=== PATIENT | female | born 1985 | race Caucasian/White ===

== ENCOUNTER 2017-06-07 05:51 | Emergency (ER) | payer SELFPAY ==
[2017-06-07 06:00] VITALS: BP 132/82
--- NOTE | 2017-06-07 06:17 | EDM.PDOC ---
<Atul Burgos A - Last Filed: 06/07/17 06:55> ED HPI GENERAL MEDICAL PROBLEM - General Chief Complaint: Neuro Symptoms/Deficits Stated Complaint: VISION SPEACH THOUGHT NUMBNESS Time Seen by Provider: 06/07/17 05:55 Source of Information: Reports: Patient History Limitations: Reports: No Limitations - History of Present Illness INITIAL COMMENTS - FREE TEXT/NARRATIVE: The patient is a 32-year-old female with a history of migraines who comes in with several neurological symptoms. She states that at 2:30 this morning she woke up with what she thought was a migraine headache. She had pain in her left neck area. However she noticed that she had difficulty seeing at that time and then also had difficulty speaking and right facial droop and left arm weakness. She took ibuprofen for her headache. The symptoms have fluctuated over the last 4 hours. She and her state that they nearly resolved and then she started having some difficulty speaking again. She's never had symptoms like this before. There was no provoking factor other than the headache. No recent head injury. At this time she still noticing the vision changes which is that she can't see her right peripheral vision out of both eyes. She also is having some difficulty speaking. However the facial droop in the right arm weakness have resolved. Denies recent illness. Last known well time was 8 PM last night when she went to bed. Left Neck Pain Score (Numeric/FACES): 3 - Related Data Allergies Allergy/AdvReac Type Severity Reaction Status Date / Time No Known Allergies Allergy Verified 06/07/17 05:59 Past Medical History Neurological History: Reports: Migraines Social & Family History - Tobacco Use Smoking Status *Q: Never Smoker - Recreational Drug Use Recreational Drug Use: No ED ROS GENERAL - Review of Systems Review Of Systems: See Below Constitutional: Denies: Fever HEENT: Reports: Vision Change Respiratory: Reports: No Symptoms Cardiovascular: Reports: No Symptoms Endocrine: Reports: No Symptoms GI/Abdominal: Reports: No Symptoms Musculoskeletal: Reports: No Symptoms Skin: Reports: No Symptoms Neurological: Reports: Headache, Weakness Psychiatric: Reports: No Symptoms Hematologic/Lymphatic: Reports: No Symptoms Immunologic: Reports: No Symptoms ED EXAM, NEURO - Physical Exam Exam: See Below Exam Limited By: No Limitations General Appearance: Alert, WD/WN, No Apparent Distress Eye Exam: Bilateral Eye: EOMI, Normal Inspection, PERRL Ears: Normal External Exam, Hearing Grossly Normal Nose: Normal Inspection Throat/Mouth: Normal Inspection, Normal Lips, Normal Oropharynx, Normal Voice, No Airway Compromise Head Exam: Atraumatic, Normocephalic Neck: Normal Inspection, Supple, Full Range of Motion Respiratory/Chest: No Respiratory Distress, Lungs Clear, Normal Breath Sounds, No Accessory Muscle Use Cardiovascular: Normal Peripheral Pulses, Regular Rate, Rhythm, No Murmur GI/Abdominal: Soft, Non-Tender Neurological: Alert, Normal Mood/Affect, Normal Dorsiflexion, CN II-XII Intact, Normal Plantar Flexion, No Motor/Sensory Deficits, Oriented x 3, Other (R homonymous hemianopsia) Back Exam: Normal Inspection Extremities: Normal Inspection Psychiatric: Normal Affect, Normal Mood Skin Exam: Warm, Dry, Intact, Normal Color, No Rash Course - Vital Signs Last Recorded V/S: Last Vital Signs Temp 98 F 06/07/17 05:54 Pulse 94 06/07/17 05:54 Resp 16 06/07/17 05:54 BP 132/82 06/07/17 05:54 Pulse Ox 100 06/07/17 05:54 - Orders/Labs/Meds Orders: Active Orders 24 hr Category Date Time Status EKG 12 Lead [EKG Documentation Completion] [RC] STAT Care 06/07/17 06:17 Active Peripheral IV Care [RC] . DIRECTED Care 06/07/17 06:19 Active Brain w wo Cont [MR] Stat Exams 06/07/17 06:40 Taken Sodium Chloride 0.9% [Saline Flush] Med 06/07/17 06:18 Active 10 ml FLUSH ASDIRECTED PRN Sodium Chloride 0.9% [Saline Flush] Med 06/07/17 10:40 Active 10 ml FLUSH ONETIME PRN Peripheral IV Insertion Adult [OM.PC] Routine Oth 06/07/17 06:18 Ordered Medication Orders Sodium Chloride (Saline Flush) 10 ml FLUSH ASDIRECTED PRN PRN Reason: Keep Vein Open Last Admin: 06/07/17 06:24 Dose: 10 ml Sodium Chloride (Saline Flush) 10 ml FLUSH ONETIME PRN PRN Reason: Keep Vein Open Last Admin: 06/07/17 11:23 Dose: 10 ml Labs: Laboratory Tests 09/27/17 09/27/17 Range/Units 06:10 06:10 WBC 5.01 (3.98-10.04) K/mm3 RBC 4.56 (3.98-5.22) M/mm3 Hgb 13.3 (11.2-15.7) gm/L Hct 38.7 (34.1-44.9) % MCV 84.9 (79.4-94.8) fl MCH 29.2 (25.6-32.2) pg MCHC 34.4 (32.2-35.5) g/dl RDW Std Deviation 43.5 (36.4-46.3) fL Plt Count 302 (182-369) K/mm3 MPV 10.8 (9.4-12.3) fl Neut % (Auto) 55.5 (34.0-71.1) % Lymph % (Auto) 36.1 (19.3-51.7) % Baker % (Auto) 6.8 (4.7-12.5) % Eos % (Auto) 0.8 (0.7-5.8) Baso % (Auto) 0.6 (0.1-1.2) % Neut # (Auto) 2.78 (1.56-6.13) K/mm3 Lymph # (Auto) 1.81 (1.18-3.74) K/mm3 Baker # (Auto) 0.34 (0.24-0.36) K/mm3 Eos # (Auto) 0.04 (0.04-0.36) K/mm3 Baso # (Auto) 0.03 (0.01-0.08) K/mm3 Sodium 140 (136-145) mEq/L Potassium 3.6 (3.5-5.1) mEq/L Chloride 103 (98-107) mEq/L Carbon Dioxide 21 (21-32) mEq/L Anion Gap 19.6 H (5-15) BUN 11 (7-18) mg/dL Creatinine 1.0 (0.55-1.02) mg/dL Est Cr Clr Drug Dosing 79.27 mL/min Estimated GFR (MDRD) > 60 (>60) mL/min BUN/Creatinine Ratio 11.0 L (14-18) Glucose 87 (74-106) mg/dL Calcium 9.2 (8.5-10.1) mg/dL Total Bilirubin 0.4 (0.2-1.0) mg/dL AST 19 (15-37) U/L ALT 23 (14-59) U/L Alkaline Phosphatase 58 (46-116) U/L Troponin I < 0.017 (0.00-0.056) ng/mL Total Protein 7.9 (6.4-8.2) g/dl Albumin 4.0 (3.4-5.0) g/dl Globulin 3.9 gm/dL Albumin/Globulin Ratio 1.0 (1-2) Meds: Medications Generic Name Dose Route Start Last Admin Trade Name Freq PRN Reason Stop Dose Admin Sodium Chloride 10 ml 06/07/17 06:18 06/07/17 06:24 Saline Flush FLUSH 10 ml ASDIRECTED PRN Administration Keep Vein Open Sodium Chloride 10 ml 06/07/17 10:40 06/07/17 11:23 Saline Flush FLUSH 10 ml ONETIME PRN Administration Keep Vein Open Discontinued Medications Generic Name Dose Route Start Last Admin Trade Name Lena PRN Reason Stop Dose Admin Acetaminophen 975 mg 06/07/17 09:04 06/07/17 09:09 Tylenol PO 06/07/17 09:05 975 mg NOW ONE Administration Diphenhydramine HCl 25 mg 06/07/17 06:18 06/07/17 07:42 Benadryl IVPUSH 06/07/17 06:19 25 mg ONETIME ONE Administration Gadobenate Dimeglumine 19 ml 06/07/17 10:40 06/07/17 11:23 Multihance IVPUSH 06/07/17 10:41 18 ml ONETIME ONE Administration Sodium Chloride 1,000 mls @ 1,000 mls/hr 06/07/17 06:18 06/07/17 07:39 Normal Saline IV 06/07/17 07:17 1,000 mls/hr ONETIME ONE Administration Metoclopramide HCl 10 mg 06/07/17 06:18 06/07/17 07:40 Reglan IVPUSH 06/07/17 06:19 10 mg ONETIME ONE Administration Ondansetron HCl 4 mg 06/07/17 06:18 06/07/17 07:39 Zofran IVPUSH 06/07/17 06:19 4 mg ONETIME ONE Administration - Re-Assessments/Exams Free Text/Narrative Re-Assessment/Exam: 06/07/17 06:16 Complex migraine versus possible but thought less likely CVA. Her symptoms have rapidly improved. She states that she initially had left arm weakness and right facial droop and there are none of these findings on physical exam at this time. Her speech still seems a little bit slow but is otherwise normal. She does still have the homonymous hemianopsia. Not a TPA candidate given rapid improvement in symptoms. Also last known well time was at 8 PM when she went to bed which was 10 hours ago. 06/07/17 06:55 CT scan of her head shows no acute abnormality. Patient continues to have some vision and speech deficit but her speech is slightly improved. No worsening of symptoms. MRI pending. 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 Consider follow-up with Dr. Julien, family practice our [facility] clinic or other provider of your choice in about 1-2 weeks for recheck, call [phone] for appointment. Return to ED if symptoms worsening in any way. - My Orders Last 24 Hours: My Active Orders 06/07/17 10:40 Sodium Chloride 0.9% [Saline Flush] 10 ml FLUSH ONETIME PRN - Assessment/Plan Last 24 Hours: My Active Orders 06/07/17 10:40 Sodium Chloride 0.9% [Saline Flush] 10 ml FLUSH ONETIME PRN <Daniel Burgos - Last Filed: 06/07/17 12:18> Course - Re-Assessments/Exams Free Text/Narrative Re-Assessment/Exam: 06/07/17 09:00. have assumed care from Dr. Prem Burgos. I agree with her documentation of history and exam. When I did check on patient just a few minutes ago she is doing much better. She states that the loss of right peripheral field vision has almost completely resolved. Tafoya is fairly mild at this point, about a "2-3". The speech difficulty that she did have about 7 hours ago was very brief. Her states she also had a right facial droop at that time. She states that her left hand was weak and clumsy for a very short period time. Her speech is also back to normal. She did take 800 mg ibuprofen about 7 hours ago. We will go ahead and give some Tylenol now. Her CT scan was normal. Labs were all relatively normal. She has had occasional migraines in the past and has had some visual field deficit in the past but never the facial droop or speech difficulty. She is scheduled for MRI in about 2 hours. We will continue to hold her in the ED until MRI can be obtained. Of note they are from [place] about 80 miles [place]. 06/07/17 12:15, MRI is come back negative for infarct or other acute abnormality , see radiologist report for details. Patient states headache now has completely resolved with more time. She has no other remaining symptoms at this time. Neurologic status has completely returned back to normal. Discharge instructions as documented. Departure - Departure Time of Disposition: 12:16 Condition: Good - My Orders Last 24 Hours: My Active Orders 06/07/17 10:40 Sodium Chloride 0.9% [Saline Flush] 10 ml FLUSH ONETIME PRN - Assessment/Plan Last 24 Hours: My Active Orders 06/07/17 10:40 Sodium Chloride 0.9% [Saline Flush] 10 ml FLUSH ONETIME PRN
[2017-06-07] MEDS ORDERED: diphenhydrAMINE 50 MG/ML SDV IVPUSH ONE (06:18)
[2017-06-07] MEDS ORDERED: Sodium Chloride 0.9% 1,000 ML IV ONE (06:18)
[2017-06-07] MEDS ORDERED: Metoclopramide 10 MG/2 ML SDV IVPUSH ONE (06:18)
[2017-06-07] MEDS ORDERED: Ondansetron 4 MG/2 ML SDV IVPUSH ONE (06:18)
[2017-06-07] MEDS ORDERED: Sodium Chloride 0.9% 10 ML Syringe FLUSH PRN ×2 (06:18→10:40)
--- NOTE | 2017-06-07 06:51 | CT ---
Head CT Technique: Multiple axial sections through the brain were obtained. Intravenous contrast was not utilized. Comparison: No previous intracranial imaging. Findings: Ventricles along with basal cisterns and sulci over the convexities are within normal limits for the patient's age. No abnormal parenchymal densities are seen. No evidence of intracranial hemorrhage. No midline shift or mass effect is seen. Bone window settings were reviewed which shows no acute calvarial abnormality. Visualized sinuses are clear. Impression: 1. No abnormality is identified on noncontrast head CT study. Diagnostic code #1
[2017-06-07] MEDS ORDERED: Acetaminophen 325 MG Tab PO ONE (09:04)
[2017-06-07] MEDS ORDERED: Gadobenate Dimeglumine 529 MG/ML 20 ML SDV IVPUSH ONE (10:40)
--- NOTE | 2017-06-08 14:25 | MR ---
MRI brain (with and without contrast) Technique: T1 sagittal; T2, T2 FLAIR, T1 and diffusion axial; T1 FLAIR coronal and T2 FLAIR sagittal; postgadolinium T1 axial and post-gadolinium T1 FLAIR coronal images were obtained. Comparison: Previous head CT study of 06/07/17. Findings: Ventricles along with basal cisterns and sulci over the convexities are within normal limits for the patient's age. Cerebellar tonsils slightly descend below the foramen magnum which is felt to be normal variant. No abnormal signal is seen within the brain parenchyma. No midline shift or mass effect is seen. No abnormal areas of enhancement are seen. There is a very minimal area of diffusion abnormality within the cortex of the left posterior parietal region presumably due to a very small fairly acute cortical injury possibly due to migraine headache if patient has correlating symptoms. No other diffusion abnormalities are seen. No abnormal enhancement is seen within the brain. Impression: 1. Very minimal diffusion abnormality within the cortex within the posterior left parietal region. This is likely incidental but most likely due to very minimal acute cortical injury possibly from previous migraine headache if patient has correlating symptoms. 2. Minimal descent of the inferior cerebellar tonsils which is felt to be normal variant and incidental. 3. No additional abnormality is identified on MRI study of the brain. Diagnostic code #3 Insignificant disagree with preliminary report issued by [employer] (preliminary report finalized on 06/07/17, 12:43 PM Central Time)
== END 2017-06-07 12:29 | disposition home or self-care (01) ==
LOC: JD.ED 05:51
DX: G43.B0 Ophthalmoplegic migraine, not intractable (principal)
CPT/HCPCS: 36415; 70450; 70553; 80053; 84484; 85025; 93005; 96361; 96374; 96375; 99285; A9270; A9577; J1200; J2405; J2765; J7040; J7050; 99284